=== PATIENT | male | born 1990 | race Caucasian/White ===

== ENCOUNTER 2018-04-28 21:10 | Emergency (ER) | payer OTHER, SELFPAY ==
--- NOTE | 2018-04-28 21:10 | DT_ITS ---
This patient was seen during an EMR downtime April 22, 2018 - April 29, 2018. This patient may have a combination of paper and electronic documentation or all paper documentation. All documentation is viewable within the e-chart portion of [facility] for each patient visit.
== END 2018-04-28 22:52 | disposition home or self-care (01) ==
PROVIDERS: Emergency Provider Emergency Medicine
DX: S39.012A Strain of muscle, fascia and tendon of lower back, initial encounter (principal); M62.830 Muscle spasm of back; X50.9XXA Other and unspecified overexertion or strenuous movements or postures, initial encounter; Y93.9 Activity, unspecified; Y92.9 Unspecified place or not applicable
CPT/HCPCS: 96372; 99283

== ENCOUNTER 2018-05-03 15:18 | Emergency (ER) | payer OTHER, SELFPAY ==
[2018-05-03 15:19] VITALS: BP 125/72; PULSE 80; RESP 16; TEMP 36.6; O2SAT 97; BMI 28.8
--- NOTE | 2018-05-03 15:54 | ED.VISSUMM ---
- ER Visit Summary Date of Service: 05/03/18 Chief Complaint: Back pain History of Present Illness: The patient is a 27 M who presents for back pain after injury 4 days ago. Patient is on active duty in the , and he was hoping move objects when he felt a strain in his lower back. It was minor, but the next day while doing sit ups, he had sharp severe pain suddenly in his lower back and had to stop exercising. He was seen in the emergency department and prescribed Flexeril, which she states helps with the pain but he is unable to function because he is dizzy and sleepy. He is unable to work while taking the medication due to side effects. He denies any bowel or bladder incontinence or retention, numbness or weakness in the legs, fever, abdominal pain. History of depression and anxiety, for which he takes a citalopram and hydroxyzine. Physical Examination: Vital signs: afebrile, hemodynamically stable, no hypoxia on room air General: well nourished, well developed, in no distress Skin: warm, dry, no rash, no pallor HEENT: normocephalic and atraumatic; PERRL, EOMI, moist mucous membranes Cardiovascular: regular rate and rhythm, no peripheral edema, 2+ pulses all distal extremities Respiratory: No increased work of breathing Abdominal: Abdomen is soft, nontender with normoactive bowel sounds, no guarding or rebound, no masses Back: tenderness in lumbar midline diffusely and right paraspinal region. No rash, stepoffs, deformities, induration, or point tenderness, straight leg raise negative bilat MSK: Moves all extremities, no deformities, normal strength, patellar reflexes intact and symmetric Neuro: Awake and alert, oriented ?4. No facial droop, sensation and motor function intact and symmetric Test Results: [] Emergency Department Course and Treatment: Discussed with patient that his dizziness and sleepiness are likely side effects of the Flexeril, especially since he is taking hydroxyzine at the same time. He is to stop taking the Flexeril, as the side effects are appearing with his daily activities. Patient was even a dose of naproxen and a prescription for the same. He is to reserve Flexeril only for bedtime. Patient was given work restrictions for light duty until he follows up with another physician and is cleared for full work. We discussed that back pain takes time to heal, and we do not have a medication that will make it completely go away, and we can only treat the symptoms. We discussed nonmedication interventions as well, such as stretching, heating pad, exercises as tolerated. Patient had no red flag symptoms that were concerning for epidural hematoma, abscess, cauda equina syndrome or other emergent condition that would require further testing, such as MRI. Patient was discharged home with a ride. Treatment Plan: [] Disposition: [] Impression: Lumbosacral strain This note was generated with [employer] dictation software. It may contain incorrect words, spelling, and punctuation that were not noted in review of the chart prior to signing ED Disposition - Plan for ED Patient: Disposition: Home or Assisted Living Chief Complaint: Back Instructions: ED Sprain Strain Lumbar Prescriptions: Naproxen [Naprosyn] 500 mg PO BID PRN #30 tab [facility] - 10-14 Days if not better Additional Instructions: Please stop taking the Flexeril, as it is giving you too many side effects. You may use it only at bedtime to help with severe back pain interrupting sleep. Use the naproxen instead, and please take it twice daily scheduled for 5 to 7 days to help with inflammation in your back. Take it up to twice daily as needed. If you have any worsening of your condition or any new concerning symptoms, please return immediately to the emergency department for another evaluation.
[2018-05-03] MEDS: Naproxen 500 MG Tablet PO (16:03)
== END 2018-05-03 16:07 | disposition home or self-care (01) ==
PROVIDERS: Emergency Provider Emergency Medicine
DX: S39.012A Strain of muscle, fascia and tendon of lower back, initial encounter (principal); R42 Dizziness and giddiness; X58.XXXA Exposure to other specified factors, initial encounter; Y93.9 Activity, unspecified; Y92.9 Unspecified place or not applicable; F41.9 Anxiety disorder, unspecified; F32.9 Major depressive disorder, single episode, unspecified; Z79.899 Other long term (current) drug therapy
CPT/HCPCS: 99283